=== PATIENT | female | born 1980 | race Caucasian/White ===

== ENCOUNTER 2018-01-03 09:52 | Emergency (ER) | payer OTHER, SELFPAY ==
[2018-01-03 09:53] VITALS: BP 137/63; PULSE 77; RESP 20; TEMP 36.7; O2SAT 99; BMI 39.3
--- NOTE | 2018-01-03 10:09 | RAD_ITS ---
STUDY: X-RAY - LUMBAR SPINE REASON FOR EXAM: Female, 37 years old. Back pain since last night. TECHNIQUE: 3 view(s) of the lumbar spine were obtained. COMPARISON: None FINDINGS: Normal lumbar lordosis. There is no substantial scoliosis. Grade 1 anterolisthesis of L5 on S1 with pronounced L5-S1 disc space height narrowing. Normal vertebral bodies and endplates. Normal remaining lumbar disc space heights. Radiopaque linear foreign bodies in both sides of the fallopian tubes are presumably from previous endoluminal tubal ligation. RAD/Lumbar Spine 2 or 3 Views IMPRESSION: 1. No acute osseous abnormality of the lumbar spine. 2. Grade 1 anterolisthesis of L5 on S1 with pronounced L5-S1 disc space height narrowing. Electronically Signed: Miguel West MD at 11:24 EST , Service support ,
[2018-01-03] MEDS: Ketorolac 60 MG/2 ML Vial IM (10:15)
[2018-01-03] MEDS: Orphenadrine 60 MG/2 ML Ampul IM (10:15)
--- NOTE | 2018-01-03 10:20 | ED.VISSUMM ---
- ER Visit Summary Date of Service: 01/03/18 Chief Complaint: Back pain History of Present Illness: The patient is a 37 F ends to the emergency department with lower back injury. Patient states she had some mild pain intermittently throughout the week like a band across her low back. Yesterday, she was bending to put on her shoes. She felt something pop in her low back. Since then, she has had intense pain. She describes as a burning sensation is worse with any motion. It does not radiate down her legs. She has had no problems of bowel or bladder. She states that it hurts to walk, but she denies any change in gait. She did try ibuprofen with little relief. The patient has no history of prior spinal surgery or back problems. Physical Examination: Afebrile, vitals unremarkable. Well-appearing female no acute distress. Head is normocephalic, atraumatic. Pupil's equal round reactive, extraocular muscles intact. Neck supple. Heart regular rate and rhythm. Lungs clear, chest nontender. Abdomen soft, nontender, nondistended. No pulsatile mass. Patient has paraspinal tenderness in the lumbar area, but no bony tenderness. Straight leg raise is negative bilaterally. 2+ symmetric lower extremity pulses. 2+ reflexes. No clonus. No weakness of dorsiflexion, plantar flexion, or extensor hallucis longus bilaterally. Test Results: [] Emergency Department Course and Treatment: The patient did have some midline tenderness in her lumbar spine. She has a straight leg raise which is negative. She has normal pulses, reflexes, sensation of bilateral lower extremities. She states the pain started immediately when she bent over. I did obtain plain films which are unremarkable. The patient was treated with IM antispasmodics, analgesics, and anti-inflammatories. On reevaluation, she is resting more comfortably. I do have some suspicion this may be disc rupture or disc impingement. I am going to treat the patient with a short course of analgesics and anti-inflammatories. I did awake overnight counselor her she may need outpatient physical therapy or MRI. The patient is comfortable with this plan of care. I have no suspicion for cauda equina or other dangerous process. I do feel this can safely be followed as an outpatient. The patient will be discharged home. Treatment Plan: [] Disposition: Discharge Impression: 1. Acute lumbar strain This note was generated with Dragon dictation software. It may contain incorrect words, spelling, and punctuation that were not noted in review of the chart prior to signing ED Disposition - Plan for ED Patient: Disposition: Home or Assisted Living Chief Complaint: Back Instructions: ED Sprain Strain Lumbar Prescriptions: Hydrocodone Bitart/Apap 5-325 [[place] 5/325] 1 tab PO Q4H PRN PRN 3 Days #12 tab PRN Reason: Pain MethylPREDNISolone DosePak [Medrol DosePak] 4 mg PO UD #1 box Cyclobenzaprine [Flexeril] 10 mg PO TID PRN #20 tab PRN Reason: Muscle Spasm Referrals: Melvin Werner III, MD [Primary Care Provider] -
[2018-01-03 12:04] VITALS: BP 113/69; PULSE 77; RESP 16; O2SAT 97
[2018-01-03 12:05] VITALS: BP 113/69; PULSE 77; RESP 16; O2SAT 97
== END 2018-01-03 12:07 | disposition home or self-care (01) ==
PROVIDERS: Emergency Provider Emergency Medicine; Family Provider Family Medicine; PCP Family Medicine
DX: S39.012A Strain of muscle, fascia and tendon of lower back, initial encounter (principal); X50.1XXA Overexertion from prolonged static or awkward postures, initial encounter; Y93.9 Activity, unspecified; Y92.9 Unspecified place or not applicable; Y99.9 Unspecified external cause status
CPT/HCPCS: 72100; 96372; 99282

== ENCOUNTER → 2021-09-24 12:09 | Outpatient (CLI) | payer OTHER, SELFPAY ==
[2021-09-27 15:36] LABS: HPV APTIMA, High Risk Negative (Negative)
== END ==
PROVIDERS: PCP Family Medicine; Referring Provider Nurse Practitioner Women's Health; Visit Provider Nurse Practitioner Women's Health
DX: Z12.4 Encounter for screening for malignant neoplasm of cervix (principal)
CPT/HCPCS: 87624; 88175; G0145

== ENCOUNTER → 2022-04-24 | Outpatient (CLI) | payer OTHER, SELFPAY ==
--- NOTE | 2022-04-24 14:15 | BI_ITS ---
MAMMOGRAPHY - BILATERAL SCREENING REASON FOR EXAM: Female, 42 years old. Routine annual screening examination. PERTINENT HISTORY: Grandmother with breast cancer. TECHNIQUE: Digital bilateral breast jinny (3D mammographic acquisition) in the CC and MLO projections. 2-D mediolateral oblique (MLO) and craniocaudad (CC) views of both breasts were obtained. CAD: Full Field Digital Mammography with Computer Added Detection was performed. COMPARISON: None. Baseline examination. FINDINGS: Breast Composition: The breasts are heterogeneously dense, which may obscure small masses. There is a 6.6 mm x 9.1 mm well-defined nodule in the superior medial aspect of the right areolar region. Correlation with ultrasound is recommended. No other significant abnormalities are identified. BI/SCRN MAMM (CAD)W/JINNY BILAT IMPRESSION: 6.6 mm x 9.1 mm well-defined nodule in the superior medial aspect of the right areola. Correlation with ultrasound recommended. ASSESSMENT CATEGORY: BIRADS Category 0: Incomplete. Need additional imaging evaluation. A letter regarding these results will be sent to the patient by the facility within 30 days. Approximately 10% of breast cancers are not detected by mammography. A normal mammogram should not delay biopsy of a clinically suspicious abnormality. [id number] Electronically Signed: Niko Santos MD at 15:20 EDT ,
== END | disposition home or self-care (01) ==
LOC: OPBI 14:14
PROVIDERS: Visit Provider Nurse Practitioner Women's Health
DX: Z12.31 Encounter for screening mammogram for malignant neoplasm of breast (principal)
CPT/HCPCS: 77063; 77067

== ENCOUNTER → 2022-04-29 | Outpatient (CLI) | payer OTHER, SELFPAY ==
--- NOTE | 2022-04-29 12:29 | US_ITS ---
STUDY: ULTRASOUND BREAST - RIGHT REASON FOR EXAM: Female, 42 years old. Abnormal screening mammogram. TECHNIQUE: Axial and longitudinal images of the RIGHT breast were performed with a high resolution ultrasound transducer. # OF IMAGES: 28 COMPARISON: Comparison is made with prior study dated 04/24/2022. FINDINGS: RIGHT Breast: The mammographic abnormality corresponds to a 9 mm x 9 mm x 8 mm retroareolar cyst. US/Breast Limited Unilateral IMPRESSION: The mammographic abnormality corresponds to a 9 mm x 9 mm x 8 mm retroareolar cyst. ASSESSMENT CATEGORY: BIRADS Category 2: Benign. A letter regarding these results will be sent to the patient by the facility within 30 days. Electronically Signed: Niko Santos MD at 8:54 EDT ,
== END | disposition home or self-care (01) ==
PROVIDERS: Visit Provider Nurse Practitioner Women's Health
DX: N60.01 Solitary cyst of right breast (principal); R92.8 Other abnormal and inconclusive findings on diagnostic imaging of breast
CPT/HCPCS: 76642